=== PATIENT | male | born 1960 | race Caucasian/White ===

== ENCOUNTER → 2016-11-08 | Outpatient (CLI) | payer BC, OTHER | LOC: ULTRA 07:18 | DX: K76.0 Fatty (change of) liver, not elsewhere classified (principal); R11.0 Nausea; R10.9 Unspecified abdominal pain; R10.11 Right upper quadrant pain ==

== ENCOUNTER → 2017-11-06 | Outpatient (CLI) | payer BC, OTHER ==
[~2017-11-06] MED LIST: CBD OIL PO; COZAAR 25 MG TA25 M1 PO; FLEXERIL PO; GLUCOTROL5 MG PO; IBUPROFEN 800800 M1 PO; METFORMIN HCL500 MG PO; OMEPRAZOLE40 MG PO; PRAVACHOL40 MG PO; PREDNISONE 20 M20 MG PO; TRAMADOL 50 MG50 MG PO; VASCEPA1 GM PO
== END ==
LOC: RAD 08:52
DX: M54.16 Radiculopathy, lumbar region (principal); M47.896 Other spondylosis, lumbar region; R20.0 Anesthesia of skin

== ENCOUNTER → 2017-12-26 | Outpatient (CLI) | payer BC, OTHER ==
[~2017-12-26] VITALS: Ht 175.3 cm; Wt 102.2 kg
--- NOTE | ~2017-12-26 | HPC ---
[facility] [place] [address] PAIN MANAGEMENT CONSULTATION Name: DIANELYS COLLINS Room #: REG [facility] [place].#: [id number] Admission: 12/26/17 Attend Phys: Iliana Fitzgerald MD Discharge: Date of : 60 Report #: [id number] THIS REPORT FOR: //name// CC: Iliana Cruz MD DATE OF SERVICE: 12/26/2017 FOLLOWUP COMPLAINT: Pain radiating down into the right leg and I have returned for an injection. FOLLOWUP HISTORY: The patient is a 57-year-old gentleman who has been seen in the Pain Clinic because of pain and discomfort, which he has been experiencing. As you recall, he has had some pain and discomfort for some time. He has been experiencing discomfort radiating down into his right lumbar area. It has been determined that he is suffering from lumbar radiculopathy. He has tried a number of things to try and improve his situation. He has been using ibuprofen 800 mg. He has used tramadol. He has also bought an inversion table. Overall, he feels that he has had some improvement, but continued to have pain and discomfort. He is scheduled to continue/start physical therapy in the next few days. Overall, his pain is a 6.5. 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 He would like to proceed with an epidural steroid injection. He has returned today for this procedure. ALLERGIES: PENICILLIN, SULFA, TETRACYCLINE. MEDICATIONS: Ibuprofen 800 mg 1 p.o. q.12h., Flexeril 10 mg 1 p.o. t.i.d. for muscle spasms, Vascepa 1 gram 2 capsules twice a day by mouth, Pravachol 40 mg daily, Glucotrol 500 mg 2 tablets by mouth twice daily, Glucotrol 5 mg twice daily, Cozaar 25 mg daily, omeprazole 40 mg by mouth, Ultram 100 mg q.6h. p.r.n. PAIN CLINIC ASSESSMENT: 1. The patient is not being treated for rheumatoid arthritis. Some arthritic changes in his spine. 2. Height 5 feet 9 inches, weight 225 pounds, BMI is 33. 3. VITAL SIGNS: Blood pressure 128/72, pulse 94, respiratory rate 20, room air saturation 97%. Pain intensity 5/10. 4. The patient has not fallen in the last 3 months. 5. Blood thinner. The patient is not on blood thinner. 6. Hypertension. The patient is being treated for hypertension. 7. Opioid therapy greater than 6 weeks. The patient is not on opioid therapy, but is taking tramadol. 8. Risk assessment tool low for opioids. 9. Functional assessment tool. 10. Recreational drugs use. The patient denies use of recreational drugs. [facility] [address] [place] [address] PAIN MANAGEMENT CONSULTATION Name: DIANELYS COLLINS Room #: REG [facility]#: [id number] Admission: 12/26/17 Attend Phys: Iliana Fitzgerald MD Discharge: Date of : 60 Report #: [id number] 11. He is a former smoker, quit in 02/2017. Has 30-year smoking history. 12. Alcohol, drinks alcoholic beverages 1-2 per week. PHYSICAL EXAMINATION: GENERAL: The patient is a well-developed white male, appears his stated age. He is alert and oriented x 3. His affect is appropriate. HEENT: Normocephalic and atraumatic. Extraocular eye muscles intact. Sclerae clear. Hearing within normal limits. Membranes moist. NECK: Without JVD, adenopathy, or bruits. Good range of motion. CHEST: Clear to auscultation without rhonchi or rales. HEART: Regular rate without murmur. ABDOMEN: Nontender. MUSCULOSKELETAL: Normal without significant kyphosis, scoliosis, or lordosis. Upper extremity muscle strength is judged to be 5/5, +1 for the biceps bilaterally. Sensation within normal limits. Lower extremity judged to be 5/5 muscle strength. The patient has pain and discomfort radiating down the right SI area and into the L5-S1 distribution with numbness, weakness, tenderness. Stas's test is negative. Anterior and posterior spring tests are negative. Straight leg raise positive in the right. IMPRESSION: 1. Lumbar radiculopathy involving the right L5-S1 distribution. 2. Obstructive sleep apnea. 3. Diabetes. 4. Hypertension. 5. GI irritation. 6. Hyperlipidemia. RECOMMENDATIONS: We discussed treatment options with the patient. He has returned for an epidural steroid injection. Nothing has changed since we saw him last. He continues to have pain and discomfort in the L5-S1 distribution. Finds that it continues to be problematic. He continues to work as a realtor. This can exacerbate his pain and discomfort because of the activity. At this juncture, he would like to proceed again with an epidural steroid injection. We discussed the possible complication of the procedure, which could include, but are not limited to infection, increased muscle soreness, headache, bleeding, nerve damage, nerve paralysis, spinal headache. The patient elects to proceed. PROCEDURE NOTE: The patient was placed in the prone position. His back was sterilely prepped with a Betadine solution. A fluoroscope was used to provide an anterior, posterior as well as lateral imaging. The trigger/target area was identified. A 0.25% bupivacaine was then infiltrated. A 17-gauge Tuohy with loss of resistance technique was used to gain access to the epidural space. There was no CSF, heme or paresthesia. Total of 80 mg Depo-Medrol, 40 mg triamcinolone and 2 mL of 0.5% bupivacaine was injected. The patient tolerated the procedure well. He remained in the Pain Clinic for an appropriate amount of [facility] [address] [place] [address] PAIN MANAGEMENT CONSULTATION Name: DIANELYS COLLINS [id number] Admission: 12/26/17 Attend Phys: Iliana Fitzgerald MD Discharge: Date of : 60 Report #: [id number] time. A Band-Aid was placed. There was no bleeding. Fluoroscopy time was 10 seconds, pain decreased to 4 at the time of discharge. He will follow up in the future as needed. We would like to thank you for letting us participate in his care. We hope he continues to improve. By: [id number] Iliana Fitzgerald MD /nt
[2017-12-26 09:11] VITALS: BP 128/72
== END | disposition home or self-care (01) ==
LOC: PAIN 07:07
DX: M54.16 Radiculopathy, lumbar region (principal); G47.33 Obstructive sleep apnea (adult) (pediatric); E11.9 Type 2 diabetes mellitus without complications; I10 Essential (primary) hypertension; E78.5 Hyperlipidemia, unspecified; Z68.33 Body mass index [BMI] 33.0-33.9, adult; F11.20 Opioid dependence, uncomplicated; Z87.891 Personal history of nicotine dependence; Z88.8 Allergy status to other drugs, medicaments and biological substances

== ENCOUNTER → 2020-03-15 | Outpatient (CLI) | payer OTHER | LOC: CAT 03-10 08:38 | DX: Z13.6 Encounter for screening for cardiovascular disorders (principal); I25.10 Atherosclerotic heart disease of native coronary artery without angina pectoris; E78.00 Pure hypercholesterolemia, unspecified ==

== ENCOUNTER → 2021-06-21 | Outpatient (CLI) | payer OTHER | LOC: SJCVCIMAG 08:59 | PROVIDERS: ATTEND Internal Medicine Cardiovascular Disease | DX: I25.10 Atherosclerotic heart disease of native coronary artery without angina pectoris (principal); I10 Essential (primary) hypertension; R00.2 Palpitations; R06.00 Dyspnea, unspecified; E78.00 Pure hypercholesterolemia, unspecified; E11.9 Type 2 diabetes mellitus without complications; G47.33 Obstructive sleep apnea (adult) (pediatric); E78.5 Hyperlipidemia, unspecified; F17.210 Nicotine dependence, cigarettes, uncomplicated; Z79.4 Long term (current) use of insulin; Z86.16 Personal history of COVID-19; Z79.899 Other long term (current) drug therapy; Z72.89 Other problems related to lifestyle; Z88.0 Allergy status to penicillin; Z88.8 Allergy status to other drugs, medicaments and biological substances ==